=== PATIENT | female | born 1930 | race Two or more races ===

== ENCOUNTER 2017-11-23 12:35 | Outpatient (CLI) | payer OTHER | END 2017-11-23 13:00 | disposition home or self-care (01) | LOC: NUCLEAR 12:35 | DX: M81.0 Age-related osteoporosis without current pathological fracture (principal); Z13.820 Encounter for screening for osteoporosis ==

== ENCOUNTER 2018-12-23 15:05 | Outpatient (CLI) | payer OTHER | END 2018-12-23 17:01 | disposition home or self-care (01) | LOC: RAD 15:05 | DX: M54.89 Other dorsalgia (principal); Z13.820 Encounter for screening for osteoporosis ==

== ENCOUNTER 2019-03-04 10:41 | Outpatient (CLI) | payer OTHER | END 2019-03-04 11:02 | disposition home or self-care (01) | LOC: MAMO-SONO 10:41 | DX: Z12.31 Encounter for screening mammogram for malignant neoplasm of breast (principal); Z87.898 Personal history of other specified conditions ==

== ENCOUNTER 2020-01-11 13:18 | Emergency (ER) | payer OTHER ==
[~2020-01-11] VITALS: Ht 149.9 cm; Wt 39.9 kg
[2020-01-11] MEDS ORDERED: DICLOFENAC POTA50 MG PO (13:36)
[2020-01-11] MEDS ORDERED: LORAZEPAM0.5 MG PO (13:36)
[2020-01-11] MEDS ORDERED: NABUMETONE500 MG PO (13:37)
[2020-01-11] MEDS ORDERED: LEVOXYL50 MCG PO (13:37)
[2020-01-11] MEDS ORDERED: GABAPENTIN100 M2 PO (13:37)
[2020-01-11] MEDS ORDERED: METHYLPREDNISOLO4 M1 PO (13:37)
[2020-01-11] MEDS ORDERED: IBANDRONATE SO150 MG PO (13:38)
[2020-01-11] MEDS ORDERED: ZANAFLEX4 MG PO (13:38)
== END 2020-01-11 19:29 | disposition home or self-care (01) ==
LOC: ER 13:18
DX: G89.29 Other chronic pain (principal); M54.5 Low back pain; M62.830 Muscle spasm of back